=== PATIENT | female | born 1985 | race Caucasian/White ===

== ENCOUNTER → 2025-02-15 | Outpatient (CLI) | payer OTHER ==
[2025-02-15 18:37] LABS: Basophils # (A) 0.04 X 10*3/uL (0.00-0.10); Basophils % (A) 0.5 %; Eosinophils % (A) 1.2 %; HCT 42.2 % (37.2-46.3); Lymphocytes # (A) 2.51 X 10*3/uL (0.90-5.00); MCH 30.4 pg (27.0-32.0); MCHC 33.2 g/dL (32.0-37.0); MCV 91.5 FL (80.0-97.0); Mean Platelet Volume 10.1 FL (9.5-12.2); Monocytes # (A) 0.41 X 10*3/uL (0.20-1.00); Monocytes % (A) 4.7 %; NRBC Per 100 WBC 0 X 10*3/uL (0.00-0.01); Neutrophils # (A) 5.58 X 10*3/uL (1.80-7.70); Neutrophils % (A) 64.3 %; Platelet Count 255 X 10*3/uL (140-440); RBC 4.61 X 10*6/uL (4.10-5.20); RDW 12.9 % (11.5-14.5); WBC 8.67 X 10*3/uL (4.50-10.00)
[2025-02-15 19:09] LABS: Hepatitis B Surface Antigen Nonreactive (Nonreactive); Hepatitis C IgG Antibody Reactive (Nonreactive)
[2025-02-15 19:29] LABS: ALT 140 U/L (8-44); AST 36 U/L (13-35); Alkaline Phosphatase 78 U/L (41-126); BUN/Creat Ratio 8.25 Ratio (12.00-20.00); Blood Urea Nitrogen 6.6 mg/dL (9.0-27.0); Calcium 8.8 mg/dL (8.7-10.3); Carbon Dioxide 20.2 mmol/L (21.6-31.8); Chloride 106 mmol/L (96-109); Globulin 2.5 g/dL (1.6-3.3); Glucose 212 mg/dL (70-110); Potassium 3.9 mmol/L (3.5-5.5); Sodium 138 mmol/L (135-145); Total Bilirubin 0.3 mg/dL (0.3-1.2); Total Protein 6.5 g/dL (6.2-8.2)
== END | disposition home or self-care (01) ==
LOC: LABWHC1 12:41
PROVIDERS: ATTEND Internal Medicine Gastroenterology
DX: R74.01 Elevation of levels of liver transaminase levels (principal)
CPT/HCPCS: 36415; 80053; 85025; 86803; 87340